=== PATIENT | female | born 1950 | race Caucasian/White ===

== ENCOUNTER 2017-09-17 17:35 | Inpatient (IN) | payer BC, OTHER ==
[~2017-09-17] VITALS: Ht 152.4 cm; Wt 72.3 kg
[2017-09-17] MEDS ORDERED: ONDANSETRON INJ 2 MG/ML 2 ML VIAL IV STA (17:48)
[2017-09-17] MEDS ORDERED: IBUPROFEN 200 MG TAB PO STA (17:48)
[2017-09-17] MEDS ORDERED: ACETAMINOPHEN 325 MG TAB PO STA (17:48)
[2017-09-17] MEDS ORDERED: SODIUM CHLORIDE 0.9% 500ML 500 ML IV STA (17:48)
[2017-09-17] MEDS ORDERED: INSPMPHMLG (17:59)
[2017-09-17] MEDS ORDERED: ASPI81TA28 PO (17:59)
[2017-09-17] MEDS ORDERED: SIMV40TA2 PO (17:59)
[2017-09-17] MEDS ORDERED: CLOP1TAB15 PO (17:59)
[2017-09-17] MEDS ORDERED: EZET10TA63 PO ×2 (17:59→18:12)
[2017-09-17] MEDS ORDERED: METO25TA56 PO (17:59)
[2017-09-17] MEDS ORDERED: MULT-513 PO (17:59)
[2017-09-17] MEDS ORDERED: METF-384 PO (17:59)
[2017-09-17] MEDS ORDERED: LEVO175T3 PO (18:12)
[2017-09-17] MEDS ORDERED: LISI-729 PO (18:12)
[2017-09-17] MEDS ORDERED: LPR25 PO (18:12)
[2017-09-17] MEDS ORDERED: CITA40TA4 PO (18:12)
[2017-09-17] MEDS ORDERED: INSPMPNVLG (18:15)
[2017-09-17 18:49] LABS: BASO % 0.7 %; BASO ABS # 0.04 K/uL (0-0.2); HEMATOCRIT 47.7 % (37-47); HEMOGLOBIN 16.4 g/dL (12.0-16.0); IG# 0.02 K/uL (0.00-0.02); LYMPH % 12.7 %; MEAN CELL VOLUME 94.1 fL (80-100); MEAN CORPUSCULAR HEMOGLOBIN 32.3 pg (25-34); MEAN CORPUSCULAR HGB CONC 34.4 g/dl (32-36); MEAN PLATELET VOLUME 9.9 fL (7.4-10.4); MONO % 11.6 %; MONO ABS # 0.64 K/uL (0.11-0.59); NEUT % 74.6 %; PLATELET COUNT 171 K/uL (130-400); RED CELL DISTRIBUTION WIDTH CV 12.9 % (11.5-14.5)
[2017-09-17 18:57] LABS: INFLUENZA B ANTIGEN Neg for Influ B (NEG)
[2017-09-17] MEDS ORDERED: OSELTAMIVIR PHOSPHATE 75 MG CAP PO STA (19:05)
[2017-09-17 19:07] LABS: ALBUMIN 3.1 gm/dl (3.4-5.0); ALT/SGPT 16 U/L (12-78); BLOOD UREA NITROGEN 24 mg/dl (7-18); CARBON DIOXIDE 28 mmol/L (21-32); CREATININE 0.92 mg/dl (0.60-1.20); GLUCOSE 209 mg/dl (70-99); SODIUM 135 mmol/L (136-145)
[2017-09-17 19:10] LABS: ALKALINE PHOSPHATASE 71 U/L (45-117); AST/SGOT 15 U/L (15-37); TOTAL PROTEIN 6.7 gm/dl (6.4-8.2)
--- NOTE | 2017-09-17 19:24 | DIAGNOSTIC IMAGING REPORT ---
CHEST 2 VIEWS ROUTINE CLINICAL HISTORY: 67 years-old Female presenting with eval for pna. TECHNIQUE: PA and lateral views of the chest were obtained. COMPARISON: None. FINDINGS: Atherosclerosis of aortic arch. Cardiac silhouette enlarged. Pulmonary vascular prominence. A coronary stent or coronary artery calcification is present. Few calcified granulomas may be present. Vague perihilar opacities. Bronchial wall cuffing. Osseous structures normal. Upper abdomen normal. IMPRESSION: 1. Cardiomegaly with vague perihilar opacities, bronchial wall cuffing, and pulmonary vascular prominence suggests volume overload. No inocencio pulmonary edema. Electronically signed by: Eloy Jernigan M.D. 09/17/2017 7:23 PM Dictated Date/Time: 09/17/2017 7:21 PM
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
[2017-09-17] MEDS ORDERED: ALUMINUM/MAGNESIUM/SIMETH (MAALOX MAX) 30 ML UDC PO PRN (22:15)
[2017-09-17] MEDS ORDERED: MAGNESIUM HYDROXIDE SUSP 30 ML UDC PO PRN (22:15)
[2017-09-17] MEDS ORDERED: ACETAMINOPHEN 325 MG TAB PO PRN (22:15)
[2017-09-17 23:16] VITALS: BP 134/66; PULSE 67; TEMP 36.7; O2SAT 96; BMI 31.3
--- NOTE | 2017-09-17 23:34 | EMERGENCY ROOM VISIT NOTE ---
History Report prepared by Whit: Magaly Mcmullen Under the Supervision of: Dr. Jose Juan Hooks M.D. First contact with patient: 17:43 Chief Complaint: FLU LIKE SX Stated Complaint: FLU LIKE SX, NAUSEA, DIABETIC History of Present Illness The patient is a 67 year old female who presents to the Emergency Room with complaints of worsening flu like symptoms starting four days ago. The patient states that she is fatigued and has a headache. She states that she has been nauseous, but has not vomited even though she feels like she needs to. She states that she has a sore throat and a cough. She states that she has been having mucus go down the back of her throat and has been spitting up clear phlegm. The patient notes that she is Diabetic and her sugars have been normal. The patient denies diarrhea, abdominal pain, and chest pain. She notes that she sometimes has trouble breathing from her cough. She notes that she is unsure if she had a fever because her daughter and her never took her temperature. She notes a history of a heart attack and hypertension. The patient states that her whole family has been sick with similar symptoms. She notes that she took an Advil for her headache yesterday. She has not taken anything today. Her daughter reports that the patient is visiting her and has not gotten off the couch in three days. She reports that she noticed her mother has been very weak today and has not been getting enough to drink today. She had difficulty walking today because of her weakness. Source of History: patient, family Onset: four days ago Position: other (global) Quality: other (flulike symptoms) Timing: worsening Modifying Factors (Relieving): other (none) Associated Symptoms: + headache, + sorethroat, + cough, + SOB, + nausea, + fatigue, + weakness, No chest pain, No vomiting, No abdominal pain, No diarrhea Note: The patient complains of spitting up clear phlegm. Review of Systems See HPI for pertinent positives & negatives. A total of 10 systems reviewed and were otherwise negative. Past Medical & Surgical Medical Problems: (1) Diabetes (2) Heart attack (3) HTN (hypertension) (4) Influenza Family History No pertinent family history Social History Smoking Status: Current Every Day Smoker Housing Status: lives with family Occupation Status: retired Current/Historical Medications Scheduled Aspirin (Aspirin Ec), 81 MG PO DAILY Citalopram (Citalopram Hydrobromide), 1 TAB PO DAILY Clopidogrel (Plavix), 75 MG PO DAILY Ezetimibe (Zetia), 10 MG PO DAILY Insulin Aspart (novoLOG INSULIN PUMP ), 1 EA N/A UD Levothyroxine Sodium (Levothyroxine Sodium), 1 TAB PO DAILY Lisinopril (Zestril), 5 MG PO DAILY Metformin Hcl (Glucophage), 1,000 MG PO BID Metoprolol Tartrate (Lopressor), 25 MG PO BID Multivitamins/Minerals (Mvi With Minerals), 1 TAB PO DAILY Simvastatin (Zocor), 40 MG PO QPM Allergies Coded Allergies: Clindamycin (Verified Allergy, Unknown, UNK, 09/17/17) Physical Exam Vital Signs Date Time Temp Pulse Resp B/P (MAP) Pulse Ox O2 Delivery O2 Flow Rate FiO2 09/17/17 22:26 59 18 147/84 96 Nasal Cannula 2.0 09/17/17 20:32 66 20 121/68 94 Nasal Cannula 2.0 09/17/17 19:38 67 09/17/17 19:25 71 20 137/76 91 Room Air 09/17/17 18:50 84 14 163/78 99 09/17/17 17:37 37.1 78 16 143/71 92 Physical Exam Constitutional: Vital signs reviewed. Eyes: Pupils are equal round reactive to light. Conjunctiva are noninjected. ENT: Pharynx is clear without erythema or exudate. Mucous membranes are dry. Neck supple without meningeal signs. Respiratory: Clear to auscultation bilaterally. Breath sounds are equal bilaterally. Wet cough. Cardiovascular: Regular rate and rhythm. No rubs or gallops. GI: Soft, nondistended and nontender. Bowel sounds are present. Musculoskeletal: No peripheral edema. No lower extremity tenderness. Integumentary: No cyanosis. Neurological: The patient is awake and alert. No focal deficits. Psychiatric: Normal affect. Medical Decision & Procedures ER Provider Diagnostic Interpretation: Radiology results as stated below per my review and the radiologist's interpretation: CHEST 2 VIEWS ROUTINE CLINICAL HISTORY: 67 years-old Female presenting with eval for pna. TECHNIQUE: PA and lateral views of the chest were obtained. COMPARISON: None. FINDINGS: Atherosclerosis of aortic arch. Cardiac silhouette enlarged. Pulmonary vascular prominence. A coronary stent or coronary artery calcification is present. Few calcified granulomas may be present. Vague perihilar opacities. Bronchial wall cuffing. Osseous structures normal. Upper abdomen normal. IMPRESSION: 1. Cardiomegaly with vague perihilar opacities, bronchial wall cuffing, and pulmonary vascular prominence suggests volume overload. No inocencio pulmonary edema. Electronically signed by: Eloy Jernigan M.D. 09/17/2017 7:23 PM Dictated Date/Time: 09/17/2017 7:21 PM Laboratory Results 09/17/17 18:00 Red Blood Count 5.07, Mean Corpuscular Volume 94.1, Mean Corpuscular Hemoglobin 32.3, Mean Corpuscular Hemoglobin Concent 34.4, Mean Platelet Volume 9.9, Neutrophils (%) (Auto) 74.6, Lymphocytes (%) (Auto) 12.7, Monocytes (%) (Auto) 11.6, Eosinophils (%) (Auto) 0.0, Basophils (%) (Auto) 0.7, Neutrophils # (Auto ) 4.10, Lymphocytes # (Auto) 0.70, Monocytes # (Auto) 0.64, Eosinophils # (Auto ) 0.00, Basophils # (Auto) 0.04 09/17/17 18:00 Test 09/17/17 18:00 09/17/17 21:06 White Blood Count 5.50 K/uL (4.8-10.8) Red Blood Count 5.07 M/uL (4.2-5.4) Hemoglobin 16.4 g/dL (12.0-16.0) Hematocrit 47.7 % (37-47) Mean Corpuscular Volume 94.1 fL (80-100) Mean Corpuscular Hemoglobin 32.3 pg (25-34) Mean Corpuscular Hemoglobin Concent 34.4 g/dl (32-36) Platelet Count 171 K/uL (130-400) Mean Platelet Volume 9.9 fL (7.4-10.4) Neutrophils (%) (Auto) 74.6 % Lymphocytes (%) (Auto) 12.7 % Monocytes (%) (Auto) 11.6 % Eosinophils (%) (Auto) 0.0 % Basophils (%) (Auto) 0.7 % Neutrophils # (Auto) 4.10 K/uL (1.4-6.5) Lymphocytes # (Auto) 0.70 K/uL (1.2-3.4) Monocytes # (Auto) 0.64 K/uL (0.11-0.59) Eosinophils # (Auto) 0.00 K/uL (0-0.5) Basophils # (Auto) 0.04 K/uL (0-0.2) RDW Standard Deviation 44.0 fL (36.4-46.3) RDW Coefficient of Variation 12.9 % (11.5-14.5) Immature Granulocyte % (Auto) 0.4 % Immature Granulocyte # (Auto) 0.02 K/uL (0.00-0.02) Prothrombin Time 10.5 SECONDS (9.0-12.0) Prothromb Time International Ratio 1.0 (0.9-1.1) Activated Partial Thromboplast Time 26.0 SECONDS (21.0-31.0) Partial Thromboplastin Ratio 1.0 Anion Gap 7.0 mmol/L (3-11) Estimated GFR () 74.2 Estimated GFR (Non- 64.0 BUN/Creatinine Ratio 26.0 (10-20) Calcium Level 9.0 mg/dl (8.5-10.1) Total Bilirubin 0.5 mg/dl (0.2-1) Direct Bilirubin < 0.1 mg/dl (0-0.2) Aspartate Amino Transf (AST/SGOT) 15 U/L (15-37) Alanine Aminotransferase (ALT/SGPT) 16 U/L (12-78) Alkaline Phosphatase 71 U/L (45-117) Total Protein 6.7 gm/dl (6.4-8.2) Albumin 3.1 gm/dl (3.4-5.0) Influenza Type A Antigen POS for Influ A (NEG) Influenza Type B Antigen Neg for Influ B (NEG) Troponin I 0.016 ng/ml (0-0.045) Laboratory results as reviewed by me. Medications Administered Medications (Trade) Dose Ordered Sig/Mauro Route Start Time Stop Time Status Last Admin Dose Admin Sodium Chloride 500 ml @ 999 mls/hr Q31M STAT IV 09/17/17 17:48 09/17/17 18:18 DC 09/17/17 18:22 999 MLS/HR Ondansetron HCl (Zofran Inj) 4 mg NOW STAT IV 09/17/17 17:48 09/17/17 17:51 DC 09/17/17 18:22 4 MG Acetaminophen (Tylenol Tab) 650 mg NOW STAT PO 09/17/17 17:48 09/17/17 17:51 DC 09/17/17 18:22 650 MG Ibuprofen (Advil Tab) 400 mg NOW STAT PO 09/17/17 17:48 09/17/17 17:51 DC 09/17/17 18:22 400 MG Oseltamivir Phosphate (Tamiflu Cap) 75 mg NOW STAT PO 09/17/17 19:05 09/17/17 19:06 DC 09/17/17 19:05 75 MG ED Course 174: The patient was evaluated in room B11B. A complete history and physical exam was performed. 1747: Ordered Advil Tab 400 mg PO, Tylenol Tab 650 mg PO, Zofran Inj 4 mg IV, NSS 500 ml @ 999 mls/hr IV. 1902: I reevaluated the patient and discussed the test results with her and her daughter. 1904: Ordered Tamiflu Cap 75 mg PO. 1934: I reevaluated the patient and she was feeling better. I updated her on her test results. Her O2 saturations went down to 88% while resting. The nurses put her on 2 L of Oxygen and is now at 100%. She does not currently feel short of breath. I turned it off to see how she does. 2012: I reevaluated the patient and her O2 saturation dropped to 87%. 2016: [place] [facility] [place] discussed the patient and her results. The patient will be further evaluated by Dr. Kovacs. Medical Decision This is a 67-year-old female who presents with generalized weakness and flulike symptoms. Differential diagnosis includes influenza, dehydration, electrolyte abnormality, pneumonia, hyperglycemia. I did perform a limited focused review of portions of the patient's old chart on the electronic medical record. The patient has had no recent pertinent visits to this hospital. I did evaluate the patient as noted above. IV access was established. The patient appears clinically dehydrated. She was given IV fluids normal saline 500 mL. The patient was placed on a continuous cardiac technician. I did order and personally review the patient's chest x-ray as described above. There is no evidence of pneumonia. I did order and review the patient's blood work as noted in the electronic medical record. She appears to have some hemoconcentration. I did order a rapid flu test which was positive for influenza A. I did reassess the patient. I did discuss the test results with her and her daughter. She was noted by the nurse to have low O2 saturations. She does state that she has been somewhat short of breath over the past several days due to her coughing. Because of her weakness and low O2 saturation she will be hospitalized for further care. She was treated with Tamiflu. I did discuss case with the hospitalist and telephonic nurse case manager. Medication Reconcilliation Current Medication List: was personally reviewed by me Blood Pressure Screening Patient's blood pressure: Elevated blood pressure Blood pressure disposition: Referred to PCP Consults Time Called: 2012 Consulting Physician: [place] [facility] [place]ed Call: [address] [place] [facility] [place] We discussed the patient and her results. The patient will be further evaluated by Dr. Kovacs. Impression Primary Impression: Influenza Additional Impressions: Dehydration Hyperglycemia Hypoxemia Scribe Attestation The scribe's documentation has been prepared under my direct and personally reviewed by me in its entirety. I confirm that the note above accurately reflects all work, treatment, procedures, and medical decision making performed by me. Departure Information Dispostion Being Evaluated By Hospitalist Referrals No Doctor, Assigned (PCP) Patient Instructions My [facility] Problem Qualifiers
[2017-09-18] VITALS (9 sets, daily range): BP systolic 107–156; BP diastolic 57–91; PULSE 58–92; TEMP 36.9–37.5; O2SAT 89–99
--- NOTE | 2017-09-18 | NUR ---
A: PT arrived on unit at 2315 via litter and ambulated to bed with 1x assist, she was oriented to room and call culp system, droplet precaution R/T + influenza A, float RN assisting with admission assessment, denies chest pain or SOB on 2L NC, VSS, assessment compleat.
[2017-09-18] MEDS: LEVOFLOXACIN / D5W 750 MG in PREMIXED IN D5W 150 ML IV SCH ×2 (00:03→23:15)
[2017-09-18] MEDS: LEVALBUTEROL 1.25MG/0.5ML NEB INH SCH ×4 (02:20→20:31)
[2017-09-18] MEDS: IPRATROPIUM BROMIDE NEB SOLN 0.02% 2.5 ML VIAL INH SCH ×4 (02:20→20:31)
[2017-09-18] MEDS ORDERED: LEVALBUTEROL/IPRATROPIUM NEB INH SCH (03:00)
[2017-09-18] MEDS: ONDANSETRON INJ 2 MG/ML 2 ML VIAL IV PRN (03:47)
--- NOTE | 2017-09-18 04:00 | NUR ---
A: PT remains alert and oriented x4, NSR on cardiac monitor technician, denies chest pain or SOB, 1x assist OOB to bath room, bed alarm on for safety, SL, assessment compleat.
[2017-09-18 04:08] LABS: BASO % 0.7 %; BASO ABS # 0.04 K/uL (0-0.2); EOS % 0.5 %; EOS ABS # 0.03 K/uL (0-0.5); HEMATOCRIT 41.9 % (37-47); HEMOGLOBIN 14.2 g/dL (12.0-16.0); IG# 0.01 K/uL (0.00-0.02); LYMPH % 18.2 %; LYMPH ABS # 1.01 K/uL (1.2-3.4); MEAN CELL VOLUME 94.8 fL (80-100); MEAN CORPUSCULAR HEMOGLOBIN 32.1 pg (25-34); MEAN CORPUSCULAR HGB CONC 33.9 g/dl (32-36); MEAN PLATELET VOLUME 9.4 fL (7.4-10.4); MONO % 17.3 %; MONO ABS # 0.96 K/uL (0.11-0.59); NEUT % 63.1 %; PLATELET COUNT 147 K/uL (130-400); RED CELL DISTRIBUTION WIDTH CV 12.8 % (11.5-14.5); RED CELL DISTRIBUTION WIDTH SD 44.5 fL (36.4-46.3); WHITE BLOOD COUNT 5.55 K/uL (4.8-10.8)
[2017-09-18 04:28] LABS: BLOOD UREA NITROGEN 31 mg/dl (7-18); CALCIUM 8.3 mg/dl (8.5-10.1); CARBON DIOXIDE 30 mmol/L (21-32); CREATININE 1.06 mg/dl (0.60-1.20); GLUCOSE 160 mg/dl (70-99); POTASSIUM 3.7 mmol/L (3.5-5.1); SODIUM 137 mmol/L (136-145)
[2017-09-18] MEDS: BUDESONIDE 0.5 MG/2 ML VIAL (PULMICORT) INH SCH ×2 (07:27→20:00)
--- NOTE | 2017-09-18 08:00 | NUR ---
A: denies complaints. O2 at 2lpm via nc. no acute respiratory distress noted. saline lock intact LAC, site clear. insulin pump right abdomen. patient states she did not bolus with breakfast as she only took few bites. denies difficulty voiding.
--- NOTE | 2017-09-18 08:45 | NUR ---
Case Management Note- Received consult for discharge planning. Met with patient at bedside. Patient appears appropriate. She states that she lives alone, but her friend, Seven is there almost all of the time. It's a 1 story home with 4 MEG. Patient reports independence with ADL's. Patient uses a walker and cane to ambulate at times. Patient drives. Patient is currently wearing 2L 02, but does not have home oxygen. Will need to wean off 02 or order 2 step prior to discharge. Role of Electric Train Driver explained. Patient hopes to return home, but reports feeling weak. She refuses home health, but would be agreeable to rehab if she is an appropriate candidate. PT/OT evals need ordered once medically stable. Will continue to follow.
[2017-09-18] MEDS: NICOTINE 21 MG/24 HR TDSY TD SCH (09:05)
[2017-09-18] MEDS: HEPARIN SOD 5000 UNIT/0.5 ML CARP SQ SCH ×2 (09:07→21:40)
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
[2017-09-18] MEDS: OSELTAMIVIR PHOSPHATE SUSP 30 MG/5 ML UDP PO SCH ×2 (11:32→21:40)
--- NOTE | 2017-09-18 12:00 | NUR ---
A: denies complaints at present. O2 at 2lpm via nc. voiding without difficulty. saline lock intact, site clear. consumed 25% lunch. assessment unchanged.
[2017-09-18] MEDS ORDERED: NovoLOG INSULIN PUMP SCH (13:15)
[2017-09-18] MEDS ORDERED: DEXTROSE 50% 50 ML SYR IV PRN (13:30)
[2017-09-18] MEDS ORDERED: GLUCOSE 10 TABS/TUBE PO PRN (13:30)
[2017-09-18] MEDS ORDERED: GLUCAGON FOR INJ 1 MG VIAL SQ PRN (13:30)
[2017-09-18] MEDS ORDERED: GLUCOSE 40% GEL 15 GM TUBE PO PRN (13:30)
[2017-09-18] MEDS ORDERED: INSULIN ASPART 100 UNITS/ML VIAL SC PRN (13:30)
[2017-09-18] MEDS ORDERED: CLOPIDOGREL BISULFATE 75 MG TAB PO ONE (13:45)
[2017-09-18] MEDS ORDERED: ASPIRIN 81 MG ECTAB PO ONE (13:45)
[2017-09-18] MEDS ORDERED: LISINOPRIL 5 MG TAB PO ONE (13:45)
[2017-09-18] MEDS ORDERED: METOPROLOL TARTRATE 25 MG TAB PO ONE (13:45)
[2017-09-18] MEDS ORDERED: CITALOPRAM 40 MG TAB PO ONE (13:45)
[2017-09-18] MEDS ORDERED: METFORMIN HCL 500 MG TAB PO ONE (13:45)
[2017-09-18] MEDS ORDERED: EZETIMIBE 10MG TAB PO ONE (13:45)
--- NOTE | 2017-09-18 16:00 | NUR ---
A: A&O x4, 1-asst to toilet with rolling walker, bilateral diminished lungs with bilateral lower lobe rhonchi, 2L NC, denied pain, normal sinus rhythm on the monitor, own insulin pump operational.
--- NOTE | 2017-09-18 17:20 | NUR ---
A: Patient reported having 42 units of insulin in her pump. Daughter reported via telephone that she is bring more in tomorrow.
[2017-09-18] MEDS: NovoLOG INSULIN PUMP SCH ×3 (17:24→21:42)
[2017-09-18] MEDS: METFORMIN HCL 500 MG TAB PO SCH (17:25)
--- NOTE | 2017-09-18 20:00 | NUR ---
A: ate approximately 25% of evening meal, replaced her pump tubing and added more insulin, denied pain at this time
[2017-09-18] MEDS ORDERED: SIMVASTATIN 40 MG TAB PO SCH (21:00)
[2017-09-18] MEDS: METOPROLOL TARTRATE 25 MG TAB PO SCH (21:37)
[2017-09-19] VITALS (7 sets, daily range): BP systolic 93–125; BP diastolic 49–67; PULSE 52–62; TEMP 36.7–36.8; O2SAT 92–95; Ht 152.4 cm; Wt 72.3 kg
--- NOTE | 2017-09-19 | NUR ---
A: A/O. VSS. SR ON TELE. DENIES CP/SOB ON 2L 02 NC. DENIES COUGH. LS CLEAR B/L. SEE EMR FOR COMPLETE SHIFT ASSESSMENT. CALL PORTER IN REACH. IV ABX INFUSING. REMAINS ON DROPLET PRECAUTIONS FOR FLU.
[2017-09-19] MEDS: LEVALBUTEROL 1.25MG/0.5ML NEB INH SCH ×3 (01:35→14:00)
[2017-09-19] MEDS: IPRATROPIUM BROMIDE NEB SOLN 0.02% 2.5 ML VIAL INH SCH ×3 (01:35→14:00)
[2017-09-19] MEDS: ONDANSETRON INJ 2 MG/ML 2 ML VIAL IV PRN (02:49)
--- NOTE | 2017-09-19 04:00 | NUR ---
A: SLEEPING. VSS. SR. NO COMPLAINTS.
[2017-09-19 05:54] LABS: BASO % 0.7 %; BASO ABS # 0.03 K/uL (0-0.2); EOS % 0.4 %; EOS ABS # 0.02 K/uL (0-0.5); HEMATOCRIT 41.7 % (37-47); HEMOGLOBIN 14.1 g/dL (12.0-16.0); IG# 0.01 K/uL (0.00-0.02); LYMPH % 27.2 %; LYMPH ABS # 1.24 K/uL (1.2-3.4); MEAN CELL VOLUME 94.8 fL (80-100); MEAN CORPUSCULAR HGB CONC 33.8 g/dl (32-36); MEAN PLATELET VOLUME 9.4 fL (7.4-10.4); MONO % 17.5 %; NEUT ABS # 2.46 K/uL (1.4-6.5); PLATELET COUNT 139 K/uL (130-400); RED CELL DISTRIBUTION WIDTH SD 45.3 fL (36.4-46.3); WHITE BLOOD COUNT 4.56 K/uL (4.8-10.8)
[2017-09-19] MEDS ORDERED: LEVOTHYROXINE 175 MCG TAB PO SCH (06:00)
[2017-09-19 06:26] LABS: CALCIUM 8.2 mg/dl (8.5-10.1); CREATININE 0.85 mg/dl (0.60-1.20); POTASSIUM 3.9 mmol/L (3.5-5.1)
[2017-09-19] MEDS: NovoLOG INSULIN PUMP SCH ×2 (07:25→11:00)
[2017-09-19] MEDS: METFORMIN HCL 500 MG TAB PO SCH (07:26)
[2017-09-19] MEDS: NICOTINE 21 MG/24 HR TDSY TD SCH (07:26)
[2017-09-19] MEDS: METOPROLOL TARTRATE 25 MG TAB PO SCH (07:27)
[2017-09-19] MEDS: HEPARIN SOD 5000 UNIT/0.5 ML CARP SQ SCH (07:31)
[2017-09-19] MEDS: OSELTAMIVIR PHOSPHATE SUSP 30 MG/5 ML UDP PO SCH (07:31)
[2017-09-19] MEDS: BUDESONIDE 0.5 MG/2 ML VIAL (PULMICORT) INH SCH (07:46)
--- NOTE | 2017-09-19 08:00 | NUR ---
A: Assessment completed. Patient is alert and oriented. Patient oob with supervision/walker,completed am care. Telemetry in place, sinus sergio with ivcd. Insulin pump in place right lower abd with basal 2units. Denies any pain or resp issues at this time. No needs or issues at this time. Call culp in reach. Will continue to monitor. See emr assessment
[2017-09-19] MEDS ORDERED: ASPIRIN 81 MG ECTAB PO SCH (09:00)
[2017-09-19] MEDS ORDERED: CEROVITE ADV FORMULA TAB PO SCH (09:00)
[2017-09-19] MEDS ORDERED: LISINOPRIL 5 MG TAB PO SCH (09:00)
[2017-09-19] MEDS ORDERED: CITALOPRAM 40 MG TAB PO SCH (09:00)
[2017-09-19] MEDS ORDERED: EZETIMIBE 10MG TAB PO SCH (09:00)
[2017-09-19] MEDS ORDERED: CLOPIDOGREL BISULFATE 75 MG TAB PO SCH (09:00)
--- NOTE | 2017-09-19 12:00 | NUR ---
A: Assessment completed. Patient is for discharge, waiting on her ride. Denies any needs or concerns at this time. Call culp in reach. Will continue to monitor. See emr assessment
[2017-09-19] MEDS ORDERED: TMF75 PO (12:20)
[2017-09-19] MEDS ORDERED: LSN25 PO (12:20)
--- NOTE | 2017-09-19 12:23 | Discharge Instructions ---
Discharge Instructions Date of Service Sep 19, 2017. Admission Reason for Admission: Influenza Discharge Discharge Diagnosis / Problem: Influenza A Discharge Goals Goal(s): Decrease discomfort, Improve function, Increase independence, Improve disease control, Learn about illness, Diagnostic testing, Therapeutic intervention, Prevent Disease Progression Activity Recommendations Activity Limitations: resume your previous activity Exercise/Sports Limitations: as tolerated . Instructions / Follow-Up Instructions / Follow-Up Patient stable for discharge home Admitted to the hospital and found to have the flu Will need treatment with tamiflu 75 mg capsule twice a day for 3 more day Please note blood pressure medicine lisinopril reduced to 2.5 mg once daily All prescriptions sent to pharmacy electronically Please follow up with Dr Ricketts in 1-2 weeks Current Hospital Diet Patient's current hospital diet: Diabetes Type 2 Diet Discharge Diet Recommended Diet: Diabetes Type 2 Diet Pending Studies Studies pending at discharge: no Medical Emergencies . Who to Call and When: Medical Emergencies: If at any time you feel your situation is an emergency, please call 911 immediately. . Non-Emergent Contact Non-Emergency issues call your: Primary Care Provider Call Non-Emergent contact if: you have a fever, your pain is worsening . . "Provider Documentation" section prepared by Michael Thornton. . VTE Core Measure Inpt VTE Proph given/why not?: Unfractionated heparin SQ
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
[2017-09-19] MEDS ORDERED: NURSING VERBAL MED ORDER ONE (14:15)
[2017-09-19] MEDS ORDERED: OSELTAMIVIR PHOSPHATE SUSP 30 MG/5 ML UDP PO ONE (14:30)
--- NOTE | 2017-09-19 14:47 | NUR ---
A: Patient is for discharge, verbalizes understanding of discharge instructions. Encourage patient to call with any questions or concerns. Saline lock, site wnl. Monitor removed.
--- NOTE | 2017-09-19 16:00 | NUR ---
DIABETES industrial energy engineer screen identified pt for insulin pump use. BG 209 on admit. No recent A1c's available. BG values 84-116 today. Pt discharged prior to CDE visit. No further CDE intervention needed. Addendum: 09/20/17 at [address] Amended: Links added.
--- NOTE | 2017-09-19 18:32 | ECHOCARDIOGRAM REPORT ---
*NOTICE TO RECEIVING REPUBLICAN AGENCY This information is strictly Confidential and protected under [place] law. [place] law prohibits you from making any further disclosure of this information unless further disclosure is expressly permitted by the written consent of the person to whom it pertains or is authorized by law. A general authorization for the release of medical or other information is not sufficient for this purpose. Hospital accepts no responsibility if the information is made available to any other person, INCLUDING THE PATIENT. Interpretation Summary * Name: DERIC TRAN Study Date: 09/19/2017 10:55 AM BP: 125/67 mmHg * Patient Location: [facility] HR: 62 * : 1950 (M/d/yyyy) Gender: Female Height: 60 in * Age: 67 yrs Ethnicity: CA * Performed By: Vane De La Torre RDCS * * Reason For Study: CARDIOMEGALY * -- Conclusions -- * There is moderate concentric left ventricular hypertrophy. * Left ventricular systolic function is mildly reduced. * Grade I diastolic dysfunction, (abnormal relaxation pattern). * There are regional wall motion abnormalities as specified. * The left atrium is mildly dilated. * There is mild mitral regurgitation. * Small pericardial effusion. Procedure Details * A complete two-dimensional transthoracic echocardiogram was performed (2D, M-mode, Doppler and color flow Doppler). Left Ventricle * The left ventricle is normal in size. * There is moderate concentric left ventricular hypertrophy. * Ejection Fraction = 40-45%. * Left ventricular systolic function is mildly reduced. * Grade I diastolic dysfunction, (abnormal relaxation pattern). * There are regional wall motion abnormalities as specified. * Mild to moderate hypokinesis involving the basal segments with severe hypokinesis of the apex. Right Ventricle * The right ventricle is normal in size and function. * The right ventricular systolic function is normal as assessed by tricuspid annular plane systolic excursion (TAPSE) (normal >1.5 cm). Atria * The left atrium is mildly dilated. * Right atrial size is normal. Mitral Valve * Calcified mitral apparatus. * There is mild mitral regurgitation. Tricuspid Valve * The tricuspid valve is not well visualized. * There is trace tricuspid regurgitation. Aortic Valve * Aortic valve sclerosis mild, without significant aortic valvular stenosis. * No hemodynamically significant valvular aortic stenosis. * There is no significant aortic regurgitation. Great Vessels * The aortic root is normal size. Pericardium/Pleural * Small pericardial effusion. MMode 2D Measurements and Calculations IVSd 1.2 cm IVSs 2.0 cm LVIDd 4.8 cm LVIDs 3.1 cm LVPWd 1.6 cm LVPWs 1.8 cm IVS/LVPW 0.77 FS 34.5 % EDV(Teich) 105.0 ml ESV(Teich) 38.2 ml EF(Teich) 63.6 % EDV(cubed) 107.2 ml ESV(cubed) 30.1 ml EF(cubed) 72.0 % % IVS thick 62.3 % % LVPW thick 13.6 % LV mass(C)d 275.9 grams LV mass(C)s 254.1 grams SV(Teich) 66.8 ml SV(cubed) 77.2 ml Ao root diam 3.1 cm Ao root area 7.5 cm\S\2 LA dimension 4.1 cm LA/Ao 1.3 LVAd ap4 26.1 cm\S\2 LVLd ap4 7.5 cm EDV(MOD-sp4) 75.3 ml EDV(sp4-el) 77.5 ml LVAs ap4 15.4 cm\S\2 LVLs ap4 6.6 cm ESV(MOD-sp4) 29.3 ml ESV(sp4-el) 30.5 ml EF(MOD-sp4) 61.1 % EF(sp4-el) 60.7 % SV(MOD-sp4) 46.0 ml SV(sp4-el) 47.0 ml Doppler Measurements and Calculations MV E max brandon 119.1 cm/sec MV A max brandon 139.8 cm/sec MV E/A 0.85 MV dec time 0.30 sec Ao V2 max 194.1 cm/sec Ao max PG 15.1 mmHg Ao max PG (full) 11.8 mmHg LV V1 max PG 3.3 mmHg LV V1 max 90.2 cm/sec
[2017-09-20] MEDS ORDERED: LISINOPRIL 2.5 MG TAB PO SCH (09:00)
== END 2017-09-19 15:08 | disposition home or self-care (01) | DRG 195 ==
LOC: C.EDB 17:37 → C.2E 22:27 → ENRESERV 22:40
PROVIDERS: ADMIT Hospitalist; ATTEND Hospitalist
DX: J10.1 Influenza due to other identified influenza virus with other respiratory manifestations (principal); I95.9 Hypotension, unspecified; R00.1 Bradycardia, unspecified; E86.0 Dehydration; I51.7 Cardiomegaly; E87.70 Fluid overload, unspecified; E11.65 Type 2 diabetes mellitus with hyperglycemia; I25.10 Atherosclerotic heart disease of native coronary artery without angina pectoris; I11.9 Hypertensive heart disease without heart failure; E03.9 Hypothyroidism, unspecified; E78.5 Hyperlipidemia, unspecified; F41.9 Anxiety disorder, unspecified; F32.9 Major depressive disorder, single episode, unspecified; F17.210 Nicotine dependence, cigarettes, uncomplicated; I25.2 Old myocardial infarction; Z95.5 Presence of coronary angioplasty implant and graft; Z96.41 Presence of insulin pump (external) (internal); Z79.82 Long term (current) use of aspirin; Z79.02 Long term (current) use of antithrombotics/antiplatelets; Z79.4 Long term (current) use of insulin; Z79.899 Other long term (current) drug therapy